=== PATIENT | female | born 1980 | race Caucasian/White ===

== ENCOUNTER 2016-12-07 10:05 | Emergency (ER) | payer OTHER ==
[~2016-12-07] VITALS: Ht 170.2 cm; Wt 52.2 kg
[2016-12-07 10:24] VITALS: BP 124/75
[2016-12-07] MEDS ORDERED: OXYCODONE/APAP 5/325 TABLET. PO ONE (10:30)
--- NOTE | 2016-12-07 10:40 | PHYS DOC ---
Past Medical History Past Medical History: Endometriosis, Other Additional Past Medical Histor: Psoriasis Past Surgical History: Other Additional Past Surgical Histo: laparoscopy, right foot Alcohol Use: Occasionally Drug Use: Marijuana Adult General Chief Complaint Chief Complaint: WRIST PAIN HPI HPI Patient is a 36 year old female complaining of bilateral wrist as well as left forearm pain secondary to a fall yesterday. Patient states that she was walking her dog when she tripped and fell backwards catching herself with her body in both hands and wrists. She denies striking her head or loss of consciousness. She denies any previous fractures or dislocations to either wrist or forearm. 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 She denies any additional injuries or concerns at this time. Review of Systems Review of Systems Constitutional: Denies fever or chills [] Eyes: Denies change in visual acuity, redness, or eye pain [] HENT: Denies nasal congestion or sore throat [] Respiratory: Denies cough or shortness of breath [] Cardiovascular: No additional information not addressed in HPI [] GI: Denies abdominal pain, nausea, vomiting, bloody stools or diarrhea [] : Denies dysuria or hematuria [] Musculoskeletal: Denies back pain or joint pain [] Integument: Denies rash or skin lesions [] Neurologic: Denies headache, focal weakness or sensory changes [] Endocrine: Denies polyuria or polydipsia [] Current Medications Current Medications Current Medications Medications (Trade) Dose Ordered Sig/Nidia Start Time Stop Time Status Last Admin Dose Admin Oxycodone/ Acetaminophen (Percocet 5/325) 1 tab 1X ONCE 12/07/16 10:30 12/07/16 10:31 DC 12/07/16 10:33 1 TAB Allergies Allergies Allergies Coded Allergies Type Severity Reaction Last Updated Verified No Known Drug Allergies 02/08/16 No Physical Exam Physical Exam Constitutional: Well developed, well nourished, no acute distress, non-toxic appearance. [] HENT: Normocephalic, atraumatic, bilateral external ears normal, oropharynx moist, no oral exudates, nose normal. [] Eyes: PERRLA, EOMI, conjunctiva normal, no discharge. [] Neck: Normal range of motion, no tenderness, supple, no stridor. [] Cardiovascular:Heart rate regular rhythm, no murmur [] Lungs & Thorax: Bilateral breath sounds clear to auscultation [] Abdomen: Bowel sounds normal, soft, no tenderness, no masses, no pulsatile masses. [] Skin: Warm, dry, no erythema, no rash. [] Back: No tenderness, no CVA tenderness. [] Extremities: Left wrist and distal forearm with mild swelling and tenderness to palpation to the distal radius as well as the proximal carpal row. There is no palpable defect, deformity, instability or crepitus. Patient's left hand is unaffected and nontender palpation. She demonstrates range of motion with complaints of pain with range of motion with extension. Tender is neurovascular intact with capillary refill less than 2 seconds. Right wrist is normal in appearance. There is tenderness to palpation of both the proximal and distal carpal rolls without palpable defect, deformity, instability or crepitus. Full active range of motion is demonstrated. Right hand is normal in appearance and nontender to palpation. Neurologic: Alert and oriented X 3, normal motor function, normal sensory function, no focal deficits noted. [] Psychologic: Affect normal, judgement normal, mood normal. [] Current Patient Data Vital Signs Vital Signs Date Time Temp Pulse Resp B/P Pulse Ox O2 Delivery O2 Flow Rate FiO2 12/07/16 10:24 97.9 80 18 96 Room Air 97.9 EKG EKG [] Radiology/Procedures Radiology/Procedures Bilateral 3 view films were taken of patient's wrist. There is no evidence of acute bony injury is reported by the radiologist. [facility] [address] [place], [place] [id number] IMAGING REPORT Signed PATIENT: BETO DELEON ACCOUNT: [id number] : 1980 LOCATION: ER AGE: 36 SEX: F EXAM [id number] STATUS: REG ER ORD. PHYSICIAN: PHYLLIS VELASCO REASON: pain, swelling after fall yesterday PROCEDURE: FOREARM LEFT; WRIST BILAT 3V Bilateral wrists, 6 views, 12/07/2016: There is slight cortical irregularity involving the distal left radius near the level of the fused distal epiphyseal plate. There is mild underlying trabecular distortion. A definite acute fracture line is not seen. There is a degenerative type cyst in the right scaphoid bone. No definite acute fracture or dislocation is evident. IMPRESSION: 1. Mild cortical irregularity and trabecular distortion in the distal left radius near the level of the fused epiphyseal plate suggesting an acute incomplete fracture versus old posttraumatic deformity. 2. No acute right wrist abnormality is detected. Left forearm, 2 views, 12/07/2016: The proximal radius and ulna show no additional abnormality. DICTATED and SIGNED BY: ELLI GAO MD DATE: 12/07/16 1050 CC: PHYLLIS VELASCO; NO PCP ~ Course & Med Decision Making Course & Med Decision Making Patient was placed in a glass volar splint for her left wrist by emergency medicine liquified natural gas technician. Reevaluation post application findings and splint in good position repair with a neurovascularly intact left hand. Dragon Disclaimer Dragon Disclaimer This electronic medical record was generated, in whole or in part, using a voice recognition dictation system. Departure Departure Impression: Primary Impression: Distal radius fracture, left Disposition: 01 HOME, SELF-CARE Condition: GOOD Referrals: NO PCP (PCP) VIDAL THOMAS MD Patient Instructions: Radial Fracture, Splint Care, Xawo-uh-Otox Additional Instructions: 1. As discussed, the x-rays of your wrist appear normal. As shown to you, there is a subtle area that is suggestive of a break. 2. Review the discharge instructions provided for self-care and reasons to return to the emergency department. 3. Call the orthopedic doctors number listed in this paperwork. Please call this afternoon or tomorrow to schedule follow-up appointment. 4. Take the medication as prescribed. Do not combine it with any other medication causes drowsiness. Do not drive a vehicle or operate power equipment while taking any medication causes drowsiness. Scripts Oxycodone/Apap 5-325 (Percocet 5-325 Mg Tablet)1 Each Tablet1 Tab PO PRN Q6HRS PRN PAIN #15 TAB Ref 0 Prov:PHYLLIS VELASCO 12/07/16 PHYLLIS VELASCO Dec 07, 2016 10:40
--- NOTE | 2016-12-07 11:06 | RAD ---
Bilateral wrists, 6 views, 12/07/2016: There is slight cortical irregularity involving the distal left radius near the level of the fused distal epiphyseal plate. There is mild underlying trabecular distortion. A definite acute fracture line is not seen. There is a degenerative type cyst in the right scaphoid bone. No definite acute fracture or dislocation is evident. IMPRESSION: 1. Mild cortical irregularity and trabecular distortion in the distal left radius near the level of the fused epiphyseal plate suggesting an acute incomplete fracture versus old posttraumatic deformity. 2. No acute right wrist abnormality is detected. Left forearm, 2 views, 12/07/2016: The proximal radius and ulna show no additional abnormality.
[2016-12-07] MEDS ORDERED: OXYC-323 PO (11:37)
== END 2016-12-07 12:08 | disposition home or self-care (01) ==
LOC: ER 10:05
DX: S52.502A Unspecified fracture of the lower end of left radius, initial encounter for closed fracture (principal); G56.32 Lesion of radial nerve, left upper limb; L40.9 Psoriasis, unspecified; F12.10 Cannabis abuse, uncomplicated; W01.0XXA Fall on same level from slipping, tripping and stumbling without subsequent striking against object, initial encounter; Y93.K1 Activity, walking an animal; Y99.8 Other external cause status; Y92.89 Other specified places as the place of occurrence of the external cause
CPT/HCPCS: 29125; 73090; 73110; 99284-25

== ENCOUNTER → 2016-12-15 | Outpatient (CLI) | payer OTHER ==
[2016-12-07 10:24] VITALS: BP 124/75
[~2016-12-15] MED LIST: OXYC-323 PO
== END | disposition home or self-care (01) ==
LOC: LAB 16:08
PROVIDERS: ATTEND Orthopaedic Surgery
DX: S52.502A Unspecified fracture of the lower end of left radius, initial encounter for closed fracture (principal)
CPT/HCPCS: 36415; 82306

== ENCOUNTER → 2016-12-22 | Outpatient (CLI) | payer OTHER ==
[2016-12-07 10:24] VITALS: BP 124/75
--- NOTE | 2016-12-22 16:50 | KCIC ---
Examination: MRI of the right wrist without contrast HISTORY History of right wrist pain, tenderness over the snuffbox, fall. COMPARISON None available. TECHNIQUE Multiplanar, multisequence MR imaging of the right wrist were performed without contrast. FINDINGS There is an subtle low T1 signal identified in the mid scaphoid best seen on series 3 image #6 and series 6 image #14 extending to the dorsal cortex likely a nondisplaced fracture. There is moderate trabecular edema identified within the scaphoid bone. There is a small sub centimeters cystic structure identified in the proximal scaphoid likely a cyst. The scapholunate ligament, lunotriquetral ligament grossly appears intact. Minimal trabecular edema identified in the capitate bone. The visualized thyroid fibrocartilage complex appears intact peripherally. The alignment of the carpal bones grossly appears unremarkable. There is moderate amount of edema identified surrounding the scaphoid bone. The visualized flexor tendons, extensor compartment tendons grossly appears unremarkable. The median nerve in the carpal tunnel and the ulnar nerve within the Guyon's canal grossly appears unremarkable. IMPRESSION 1. Nondisplaced fracture of the mid body of the scaphoid bone in the region of the waist with the cortical line extending dorsally. Moderate trabecular edema identified in the scaphoid bone. 2. Minimal trabecular edema identified in the capitate bone likely secondary to injury. Electronically signed by: Kp Freire (Dec 22, 2016 16:49:44)
== END | disposition home or self-care (01) ==
LOC: KCIC MRI 15:14
PROVIDERS: ATTEND Orthopaedic Surgery
DX: S62.101A Fracture of unspecified carpal bone, right wrist, initial encounter for closed fracture (principal)
CPT/HCPCS: 73221

== ENCOUNTER → 2019-07-02 | Outpatient (CLI) | payer OTHER ==
[~2019-07-02] MED LIST changes: -OXYC-323 PO; +OXYC1TAB15 PO
--- NOTE | 2019-07-03 13:40 | RAD ---
CLINICAL INDICATION: POST SONO BIOPSY PRE-PROCEDURAL CONSULTATION: Details of the procedure and possible limitations and complications were discussed with the patient. After addressing her questions and concerns, written informed consent was obtained. A time out was then taken to verify patient's name and date of as well as site and laterality. PROCEDURE: The mass at the 4 o'clock position within the left breast was targeted under ultrasound. The skin of the left breast was cleansed and prepped in the typical sterile fashion. 8 cc of 1% lidocaine was used for local anesthesia. A small skin incision was then made to permit passage of and 14 gauge spring activated biopsy device. 4 core specimens were obtained. A clip was then deployed at the biopsy site. Hemostasis was achieved. Subsequently a left axillary enlarged lymph node was targeted under ultrasound. The skin overlying the left axilla was cleansed and prepped in the typical sterile fashion. Approximately 8 cc of 1% lidocaine was used for local anesthesia. A small skin incision was then made to permit passage of a 18-gauge spring activated biopsy device. 4 core specimens were obtained. The patient tolerated the procedure well with no immediate complications. Post-procedural digital mammographic imaging of the left breast demonstrate the clips in appropriate position. IMPRESSION: Successful ultrasound guided core needle biopsy of a mass at the 4 o'clock position within the left breast and left axillary lymph node. Pathology is pending
--- NOTE | 2019-07-04 09:07 | PATHOLOGY ---
[facility] Accession Number: [id number] . 01 Material submitted: . PART A: breast - LEFT BREAST MASS, 4:00, 2CMFN. Modifiers: left, 4:00 PART B: lymph node - LEFT AXILLA LYMPH NODE. Modifiers: left, axilla . 01 Clinical history: . None provided . 02 Diagnosis: A. 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 - Size of invasive component: 1.1 cm, at least. - Possible focal ductal carcinoma in situ, solid type, nuclear grade II-III/III. . B. Lymph node, left axilla, core needle biopsy: - Extensively involved with metastatic adenocarcinoma. . (Please see comment) . (SKM:rl; 07/03/2019) MBR 07/03/2019 1307 Local . 02 Comment: This case has also been reviewed by Dr. Sandhya London who agrees with the diagnosis. . The findings in this case were discussed with Dr. Shukri Green on 07/03/19. . Breast prognostic studies will be performed on the tumor in block A1. The results will be issued in an addendum report. . (JUDYM:rl; 07/03/2019) . 02 Electronically signed: . Ramón Workman MD, Pathologist NPI- [id number] . 01 Gross description: . A. The specimen is received in formalin, labeled "Katy Davis, left breast". The specimen is additionally labeled on the requisition as, "left breast mass 4:00 2 cm from nipple". Received are multiple needle cores of fibrofatty tissue measuring 1.3 x 0.8 x 0.2 cm in aggregate dimensions. The specimen is submitted entirely in cassettes A1 through A3. The cold ischemic time is 1 minute. The total formalin fixation time is 12 hours and 21 minutes . B. The specimen is received in formalin, labeled "Katy Davis, left axilla". Received are six needle cores of pale hollingsworth soft tissue ranging in length from 0.3 to 1.2 cm in length by 0.1 cm in diameter. The specimen is submitted entirely in cassette B1 through B3. (CAA; 07/02/2019) QAC/QAC 07/02/2019 1718 Local . 02 Pathologist provided ICD-10: C50.912, C77.3 . 02 CPT . 875573, 745108 Specimen Comment: A courtesy copy of this report has been sent to Specimen Comment: [phone], . Specimen Comment: Report sent to / DR CASTREJON Performed at: 01 [facility] [address], [place] [id number] MD Elieser Cheng MD Phone: [phone] Performed at: 02 [facility] [address], [place] [id number] MD Davin Delvalle MD Phone: [phone]
== END ==
LOC: US 08:39
PROVIDERS: ATTEND Surgery
DX: C50.912 Malignant neoplasm of unspecified site of left female breast (principal); R59.1 Generalized enlarged lymph nodes
CPT/HCPCS: 19083; 77065; 88305; 88361; C1713; 76942

== ENCOUNTER 2019-07-31 11:15 | Day surgery (SDC) | payer OTHER ==
[~2019-07-31] VITALS: Ht 170.2 cm; Wt 66.0 kg
[~2019-07-31 11:15] MED LIST changes: +BUPIVACAINE-EPI 0.5%-1:200000 MPF 30 ML VIAL. INJ ONE; +HEPARIN SODIUM 5,000 UNIT in IV NORMAL SALINE 500ML BAG 500 ML IRR ONE
[2019-07-31] MEDS ORDERED: DEXAMETHASONE SOD PHOS 20 MG/5 ML VIAL. ONE (11:43)
[2019-07-31] MEDS ORDERED: ONDANSETRON PF 4 MG/2 ML VIAL. ONE (11:43)
[2019-07-31] MEDS ORDERED: PROPOFOL 20 ML IV ONE (11:43)
[2019-07-31] MEDS ORDERED: SEVOFLURANE 31 TO 60 MINUTES. IH ONE (11:43)
[2019-07-31] MEDS ORDERED: LIDOCAINE 2% PF 5 ML VIAL. ONE (11:43)
[2019-07-31] MEDS ORDERED: ceFAZolin 2GM PREMIX 2 GM/50 ML BAG IV ONE (12:00)
[2019-07-31] MEDS ORDERED: IV RINGERS,LACTATED 1000ML 1,000 ML IV SCH ×2 (12:00→13:13)
[2019-07-31] MEDS ORDERED: MORPHINE SULFATE 2 MG/ML VIAL. IV PRN (13:15)
[2019-07-31] MEDS ORDERED: HYDROmorphone 2 MG/ML VIAL IV PRN (13:15)
[2019-07-31] MEDS ORDERED: ONDANSETRON PF 4 MG/2 ML VIAL. IV PRN (13:15)
[2019-07-31] MEDS ORDERED: LIDOCAINE 1% PF 2 ML VIAL. ID PRN (13:15)
[2019-07-31] MEDS ORDERED: PROCHLORPERAZINE 10 MG/2 ML VIAL. IV PRN (13:15)
[2019-07-31] MEDS ORDERED: fentaNYL PF VIAL 100 MCG/2 ML VIAL IV PRN ×2 (13:15)
[2019-07-31] MEDS ORDERED: KETOROLAC 30 MG/ML VIAL. ONE (13:19)
[2019-07-31] MEDS ORDERED: fentaNYL PF VIAL 100 MCG/2 ML VIAL ONE (13:56)
--- NOTE | 2019-07-31 14:14 | PDOC4 ---
Operative Note Operative Note Operative Note: Preoperative Diagnosis: Left breast cancer Postoperative Diagnosis: Same Procedure: Placement of Power Port-A-Cath using SonoSite guidance Surgeon: Shon Anesthesia: Gen. EBL: 10 mL Specimen: None Drains: None Complications: None Indication: The patient is a 38 year old female who was recently diagnosed with left breast cancer. A request was made for placement of a Port-A-Cath to allow for neoadjuvant chemotherapy treatment. The details and risks of the procedure were discussed. The risks include bleeding, infection, vessel injury, pneumothorax, pain, anesthetic risk, port, catheter or tubing malfunction or dysfunction, potential need for additional surgery or procedure. The patient understands and would like to proceed. Description: The patient was placed supine on the operating table and general anesthesia was performed. The bilateral neck and chest were prepped with ChloraPrep and draped in a standard surgical manner. With SonoSite ultrasound guidance the right internal jugular vein was readily identified and appeared patent. Entry was made into the vein with the skinny introducer needle under ultrasound guidance. The skinny guidewire passed readily into the central venous system. A small incision was made at the skin exit site. The skinny sheath was then placed over the guidewire. The larger guidewire was then placed within the sheath into the central venous system. Intraoperative fluoroscopy confirmed good position of the guidewire in the central venous system. The dilator and sheath were then placed over the guidewire. The catheter portion was then inserted into the central venous system and visualized using fluoroscopy. A separate right upper chest skin incision was made with a scalpel. A subcutaneous pocket was developed with cautery of sufficient size to accommodate the port. The catheter was then tunneled subcutaneously to the level of the newly formed pocket. Using fluoroscopy the catheter was positioned with the tip in the distal superior vena cava. The catheter was then cut and assembled to the port. The port was then s ecured to the chest wall with two 2-0 Prolene sutures. Using the Garner needle the port readily aspirated and flushed without difficulty. Fluoroscopy confirmed good positioning of the catheter with no twists or kinks. The subcutaneous tissue was approximated with 3-0 Vicryl. The skin was then closed with 4-0 Monocryl. A sterile OpSite dressing was then applied. The patient tolerated the procedure well and was sent to the recovery room in stable condition. At the end of the case all counts were correct. BIBIANA CASTREJON MD Jul 31, 2019 14:14
--- NOTE | 2019-07-31 14:17 | DISCH ---
DISCHARGE INSTRUCTIONS Condition on Discharge Condition on Discharge: Stable Activity After Discharge Activity Instructions for Disc: Resume previous activity Diet after Discharge Diet after Discharge: Regular Wound Incision Care Wound/Incision Care: Other, see below (keep portacath clean and dry) Follow-Up Follow up with: Oncology, call for appt BIBIANA CASTREJON MD Jul 31, 2019 14:17
[2019-07-31 14:26] VITALS: BP 126/76
[2019-07-31] MEDS ORDERED: HYDROcodone/APAP 5/325MG 1 TAB TABLET PO ONE (14:45)
--- NOTE | 2019-07-31 17:58 | RAD ---
PORTABLE CHEST 1V History: Postop Port-A-Cath placement Comparison: None. Findings: Single view of the chest is submitted. There is right internal jugular port catheter with the tip in the region of the mid to inferior aspect of the superior vena cava. No pneumothorax is identified. There is no lobar infiltrate or pleural fluid. Cardiac silhouette is within normal limits given technique. Impression: 1. There is right internal jugular port catheter with the tip in the superior vena cava, no pneumothorax identified. Electronically signed by: Juan Ruby MD (07/31/2019 5:55 PM) [facility]
== END 2019-07-31 15:20 | disposition home or self-care (01) ==
LOC: SURG 11:15
PROVIDERS: ATTEND Surgery
DX: Z45.2 Encounter for adjustment and management of vascular access device (principal); C50.912 Malignant neoplasm of unspecified site of left female breast; F17.210 Nicotine dependence, cigarettes, uncomplicated; D64.9 Anemia, unspecified; N80.9 Endometriosis, unspecified; F19.90 Other psychoactive substance use, unspecified, uncomplicated; Z72.89 Other problems related to lifestyle; Z85.3 Personal history of malignant neoplasm of breast
CPT/HCPCS: 36561; 71045; 77001; 81025; C1788; J0696; J1100; J1885; J2001; J2405; J2704; J3010; 36556; J1644; J3490; J7040

== ENCOUNTER → 2019-08-06 | Outpatient (CLI) | payer MEDICAID, OTHER ==
[2019-07-31 14:26] VITALS: BP 126/76
[~2019-08-06] MED LIST changes: -BUPIVACAINE-EPI 0.5%-1:200000 MPF 30 ML VIAL. INJ ONE; -HEPARIN SODIUM 5,000 UNIT in IV NORMAL SALINE 500ML BAG 500 ML IRR ONE
--- NOTE | 2019-08-06 10:41 | CARD ---
MR#: [id number] Date of Study: 08/06/2019 Ordering Physician: JAVI WHITING, Referring Physician: JAVI WHITING, Tech: Oksana Putnam AMBER APPROVED REPORT EXAM: Two-dimensional and M-mode echocardiogram with Doppler and color Doppler. Other Information Quality : AverageHR: 84bpm Rhythm : NSR INDICATION Breast Cancer 2D DIMENSIONS RVDd2.5 (2.9-3.5cm)Left Atrium(2D)3.0 (1.6-4.0cm) IVSd0.8 (0.7-1.1cm)Aortic Root(2D)2.6 (2.0-3.7cm) LVDd4.7 (3.9-5.9cm)LVOT Diameter2.0 (1.8-2.4cm) PWd0.9 (0.7-1.1cm)LVDs3.4 (2.5-4.0cm) FS (%) 28.3 %SV56.4 ml LVEF(%)54.6 (>50%) M-Mode DIMENSIONS Left Atrium(MM)2.96 (2.5-4.0cm)Aortic Root2.59 (2.2-3.7cm) Aortic Valve AoV Peak Leandro.138.7cm/sAoV VTI23.9cm AO Peak GR.7.7mmHgLVOT Peak Leandro.93.0cm/s AO Mean GR.4mmHgAVA (VMAX)2.07cm2 JOSH (VTI)2.10cm2 Mitral Valve MV E Vqwvxtbh70.9cm/sMV DECEL [id number] MV A Pdfazmtg31.7cm/sE/A Ratio0.8 Pulmonary Valve PV Peak Erxtjtnk49.5cm/s Pulmonary Vein S1 Lmmpzhtx60.3cm/sD2 Vpxmbgdl95.0cm/s PVa [id number] LEFT VENTRICLE The left ventricle is normal size. There is normal left ventricular wall thickness. The left ventricu lar systolic function is normal and the ejection fraction is within normal range. The Ejection Fracti on is 55-60%. There is normal LV segmental wall motion. Transmitral Doppler flow pattern is Grade I-a bnormal relaxation pattern. Normal GLS at -18 RIGHT VENTRICLE The right ventricle is normal size. There is normal right ventricular wall thickness. The right ventr icular systolic function is normal. ATRIA The left atrium size is normal. The right atrium size is normal. The interatrial septum is intact wit h no evidence for an atrial septal defect or patent foramen ovale as noted on 2-D or Doppler imaging. AORTIC VALVE The aortic valve is normal in structure and function. The aortic valve is trileaflet. Doppler and Col or Flow revealed no significant aortic regurgitation. There is no significant aortic valvular stenosi s. There is no aortic valvular vegetation. MITRAL VALVE The mitral valve is normal in structure and function. There is no evidence of mitral valve prolapse. There is no mitral valve stenosis. Doppler and Color-flow revealed trace mitral regurgitation. TRICUSPID VALVE The tricuspid valve is normal in structure and function. Doppler and Color Flow revealed trace tricus pid regurgitation. There is no tricuspid valve prolapse or vegetation. There is no tricuspid valve st enosis. PULMONIC VALVE The pulmonic valve is not well visualized. GREAT VESSELS The aortic root is normal in size. The ascending aorta is normal in size. The IVC is normal in size a nd collapses >50% with inspiration. PERICARDIAL EFFUSION There is no evidence of significant pericardial effusion. Critical Notification Critical Value: No <Conclusion> The left ventricular systolic function is normal and the ejection fraction is within normal range. Th e Ejection Fraction is 55-60%. There is normal LV segmental wall motion. Normal GLS at -18 Signed by : Tio Ayala, Electronically Approved : 08/06/2019 10:40:40
== END | disposition home or self-care (01) ==
LOC: ECHO 09:10
PROVIDERS: ATTEND Internal Medicine Hematology & Oncology
DX: C50.512 Malignant neoplasm of lower-outer quadrant of left female breast (principal); Z17.0 Estrogen receptor positive status [ER+]
CPT/HCPCS: 93306